=== PATIENT | male | born 2000 | race Two or more races ===

== ENCOUNTER 2023-09-16 23:10 | Emergency (ER) | payer SELFPAY ==
[~2023-09-16] VITALS: Ht 165.1 cm; Wt 68.0 kg
[2023-09-16 23:14] VITALS: O2SAT 100
[2023-09-16] MEDS: ONDANSETRON HCL 4MG/2ML INJ IV STA (23:37)
[2023-09-17] MEDS: SODIUM CHLORIDE 0.9% 1,000 ML IV ONE
[2023-09-17] MEDS: MORPHINE SULFATE 4 MG/ML INJ (FOR IV/IM USE) IV STA (00:36)
[2023-09-17 01:45] LABS: BASOPHILS % 0.4 % (0.0-2.0); EOSINOPHILS % 0.6 % (0.0-5.0); HEMATOCRIT. 37.5 % (42.0-52.0); HEMOGLOBIN. 12.3 g/dL (14.0-18.0); LYMPHOCYTES % 18.3 % (20.0-50.0); MEAN CORPUSCULAR HEMOGLOBIN 28.8 pg (28.0-32.0); MEAN CORPUSCULAR HGB CONC 32.9 g/dL (31.0-37.0); MEAN CORPUSCULAR VOLUME 87.5 fL (80.0-94.0); MONOCYTES % 13.7 % (2.0-8.0); PLATELET 271 x1000/uL (130-400); RED BLOOD CELL COUNT 4.28 mill/uL (4.7-6.1); RED CELL DISTRIBUTION WIDTH 13.4 % (11.6-14.6); WHITE BLOOD COUNT 10.3 x1000/uL (4.5-11.0)
[2023-09-17 01:50] LABS: CHLORIDE 107 mEq/L (98-107); POTASSIUM 4.1 mEq/L (3.5-5.1); SODIUM 138 mEq/L (136-145)
[2023-09-17 01:51] LABS: CARBON DIOXIDE 28 mEq/L (21-32)
[2023-09-17 01:52] LABS: CALCIUM 8.8 mg/dL (8.7-10.4)
[2023-09-17 01:56] LABS: CREATININE 0.7 mg/dL (0.6-1.3); GLUCOSE 84 mg/dL (70-105)
[2023-09-17 01:57] LABS: UREA NITROGEN BLOOD 8 mg/dL (9-23)
[2023-09-17] MEDS ORDERED: IBUP-2028 MT (03:40)
[2023-09-17 04:00] VITALS: TEMP 98
[2023-09-17 05:00] VITALS: BP 121/79; PULSE 66; RESP 16
== END 2023-09-17 05:32 | disposition home or self-care (01) ==
LOC: ER 23:10
DX: S00.83XA Contusion of other part of head, initial encounter (principal); Y08.89XA Assault by other specified means, initial encounter; Y93.89 Activity, other specified; Y92.89 Other specified places as the place of occurrence of the external cause; Y99.8 Other external cause status
CPT/HCPCS: 99291; 96374; 36415; 71045; 70450; 96361; 96375; 80048; 85025; 70486; 72125; 74177; J7030; J2405; J2270

== ENCOUNTER 2023-09-17 05:39 | Emergency (ER) | payer MEDICAID ==
[~2023-09-17] VITALS: Ht 165.1 cm; Wt 60.0 kg
[~2023-09-17 05:39] MED LIST: IBUP-2028 MT
[2023-09-17 06:09] VITALS: BP 108/75; PULSE 76; RESP 14; TEMP 98.2; O2SAT 100
[2023-09-17] MEDS: IOHEXOL-300 100 ML BOTTLE ONE (06:53)
== END 2023-09-17 09:38 | disposition left against medical advice (07) ==
LOC: ER 05:39
DX: R10.9 Unspecified abdominal pain (principal); Z53.21 Procedure and treatment not carried out due to patient leaving prior to being seen by health care provider
CPT/HCPCS: Q9967